=== PATIENT | female | born 1955 | race Caucasian/White ===

== ENCOUNTER → 2018-07-20 12:49 | Outpatient (CLI) | payer OTHER, SELFPAY ==
[2018-07-20 13:11] LABS: Add Manual Diff / Slide Review NO; Basophils Percent Auto 1.2 % (0-2); Eosinophils Percent Auto 3.1 % (2-4); Hematocrit 41.5 % (36-46); Hemoglobin 13.9 g/dL (12.0-16.0); Lymphocytes Percent Auto 48.5 % (25-40); Mean Corpuscular HGB Conc 33.4 % (30-36); Mean Corpuscular Hemoglobin 30.5 PG (26-34); Mean Corpuscular Volume 91.4 fL (80-100); Monocytes Percent Auto 5.9 % (3-14); Neutrophils Absolute Auto 2800 /uL (3000-5900); Neutrophils Percent Auto 41.3 % (50-75); Platelet Count 266 X10^3/uL (150-400); Red Blood Cell Count 4.54 X10^6/uL (4.0-5.2); Red Cell Distribution Width 13.8 % (11.6-14.8); White Blood Cell Count 6.9 X10^3/uL (4.5-11.0)
[2018-07-20 13:52] LABS: BUN Creatinine Ratio 22.9 (6-22); Blood Urea Nitrogen 16 mg/dL (7-17); Calcium 9.3 mg/dL (8.4-10.2); Carbon Dioxide 32 mmol/L (22-32); Chloride 104 mmol/L (98-107); Estimated Glomerular Filt Rate > 60.0 mL/min (>60); Glucose 96 mg/dL (80-110); HEMOLYSIS < 15 (0-50); Magnesium 2.3 mg/dL (1.6-2.3); Potassium 4.3 mmol/L (3.4-5.1); Sodium 145 mmol/L (137-145)
== END ==
PROVIDERS: Visit Provider Family Medicine
DX: R60.0 Localized edema (principal)
CPT/HCPCS: 36415; 80048; 83735; 85025

== ENCOUNTER → 2018-07-21 12:17 | Outpatient (CLI) | payer OTHER, SELFPAY ==
--- NOTE | 2018-07-21 | DI.US.S_ITS ---
PROCEDURE: US PERIPH VENOUS LOW EXTREM LT INDICATIONS: LEFT LOWER EXTREMITY EDEMA AND PAIN TECHNIQUE: Real-time imaging, as well as color and pulse Doppler interrogation, were performed of the lower extremity deep veins from the inguinal ligament to the popliteal fossa. COMPARISON: None. FINDINGS: The deep veins are normally compressible, and free of intraluminal thrombus. Color and pulse Doppler demonstrate normal phasic intraluminal flow. There is normal augmentation response to distal compression maneuver. IMPRESSION: No deep venous thrombosis identified within the right lower extremity. Dictated by: Brad ERWIN Interpreted: Ann Borges MD on 07/21/2018 at 13:42 Approved by: Ann Borges M.D. on 07/21/2018 at 15:37
== END ==
PROVIDERS: Visit Provider Family Medicine
DX: M79.605 Pain in left leg (principal); R60.0 Localized edema
CPT/HCPCS: 93971

== ENCOUNTER → 2018-08-10 13:35 | Outpatient (CLI) | payer OTHER, SELFPAY ==
--- NOTE | 2018-08-10 | DI.MG.S_ITS ---
BILATERAL DIGITAL SCREENING MAMMOGRAM 3D/2D WITH CAD: 08/10/2018 Comparison is made to exams dated: 03/20/2017 mammogram, 01/25/2016 mammogram, and 03/14/2014 mammogram - [facility]. The tissue of both breasts is extremely dense, which lowers the sensitivity of mammography. Current study was also evaluated with a Computer Aided Detection (CAD) system. No significant masses, calcifications, or other findings are seen in either breast. There has been no significant interval change. IMPRESSION: NEGATIVE There is no mammographic evidence of malignancy. A 1 year screening mammogram is recommended. NOTE: For mammograms, a report in lay terms will be sent to the patient. Approximately 15% of breast malignancies will not be visualized mammographically. In the management of a palpable breast mass, a negative mammogram must not discourage biopsy of a clinically suspicious lesion. Electronically Signed By: Stoney quintana/ubaldo:08/10/2018 15:28:02 letter sent: Normal Exam ACR BI-RADS Category 1: Negative 3341F
--- NOTE | 2018-08-10 | DI.US.S_ITS ---
PROCEDURE: US RENAL COMPLETE INDICATIONS: HEMATURIA TECHNIQUE: Real-time scanning was performed of the kidneys and bladder, with image documentation. COMPARISON: None. FINDINGS: Kidneys: Kidneys are normal in size. Right kidney measures 12.6 cm long; left kidney measures 11.2 cm long. Right renal cortical thickness is 1.2 cm; left renal cortical thickness is 1.4 cm. Renal cortical echotexture is normal. No hydronephrosis or nephrolithiasis. No suspicious solid mass lesions. Bladder: Pre-void bladder volume is 385 mL. Post-void residual is 0 mL. Pre-void images demonstrate no intraluminal masses or stones. On pre-void images, neither ureteral jets are noted with color Doppler interrogation. (Of note, ureteral jets may not be detectable in up to 25% of cases due to insufficient differences in specific gravity between ureteral and bladder urine). Miscellaneous: No free pelvic fluid. IMPRESSION: No hydronephrosis or nephrolithiasis found, normal bladder function. Followup CT scanning with contrast may be warranted depending on the clinical status to more accurately assess for presence of urothelial or renal cortical mass. Dictated by: Papo Brizuela M.D. on 08/10/2018 at 15:04 Approved by: Papo Brizuela M.D. on 08/10/2018 at 15:05
== END ==
PROVIDERS: PCP Family Medicine; Visit Provider Family Medicine
DX: Z12.31 Encounter for screening mammogram for malignant neoplasm of breast (principal); R31.9 Hematuria, unspecified; M81.0 Age-related osteoporosis without current pathological fracture; Z78.0 Asymptomatic menopausal state; Z87.891 Personal history of nicotine dependence
CPT/HCPCS: 76770; 77063; 77067; 77080

== ENCOUNTER → 2019-08-17 15:12 | Outpatient (CLI) | payer MEDICARE, OTHER, SELFPAY ==
--- NOTE | 2019-08-17 | DI.MG.S_ITS ---
BILATERAL DIGITAL SCREENING MAMMOGRAM 3D/2D WITH CAD: 08/17/2019 CLINICAL: Routine screening. Comparison is made to exams dated: 08/10/2018 mammogram - [facility], 03/20/2017 mammogram, and 01/25/2016 mammogram - [facility]. The tissue of both breasts is extremely dense, which lowers the sensitivity of mammography. Current study was also evaluated with a Computer Aided Detection (CAD) system. No significant masses, calcifications, or other findings are seen in either breast. There has been no significant interval change. IMPRESSION: NEGATIVE There is no mammographic evidence of malignancy. A 1 year screening mammogram is recommended. This exam was interpreted at Station ID: [id number]. NOTE: For mammograms, a report in lay terms will be sent to the patient. Approximately 15% of breast malignancies will not be visualized mammographically. In the management of a palpable breast mass, a negative mammogram must not discourage biopsy of a clinically suspicious lesion. Electronically Signed By: Stoney quintana/ubaldo:08/17/2019 16:23:55 letter sent: Normal Exam ACR BI-RADS Category 1: Negative 3341F
== END ==
PROVIDERS: PCP Family Medicine; Visit Provider Family Medicine
DX: Z12.31 Encounter for screening mammogram for malignant neoplasm of breast (principal)
CPT/HCPCS: 77063; 77067

== ENCOUNTER → 2019-08-17 15:55 | Outpatient (CLI) | payer MEDICARE, OTHER, SELFPAY | PROVIDERS: PCP Family Medicine; Visit Provider Family Medicine | DX: M85.88 Other specified disorders of bone density and structure, other site (principal); Z78.0 Asymptomatic menopausal state; Z87.891 Personal history of nicotine dependence | CPT/HCPCS: 77080 ==

== ENCOUNTER → 2020-09-04 15:49 | Outpatient (CLI) | payer OTHER, SELFPAY ==
--- NOTE | 2020-09-04 15:53 | DI.RAD.S_ITS ---
PROCEDURE: XR KNEE LT 3V INDICATIONS: LEFT KNEE PAIN S/P INJURY TECHNIQUE: 3 views of the knee were acquired. COMPARISON: None. FINDINGS: Bones: No fractures or dislocations. No suspicious bony lesions. 3 views show moderate medial compartment joint space narrowing and similar moderate degenerative osteoarthritic change at the lateral facet of the patellofemoral joint. Soft tissues: No joint effusion. No suspicious soft tissue calcifications. IMPRESSION: No trauma found. Moderate osteoarthritis as discussed at the medial compartment and lateral facet. Dictated by: Papo Brizuela M.D. on 09/04/2020 at 17:05 Approved by: Papo Brizuela M.D. on 09/04/2020 at 17:06
== END ==
PROVIDERS: PCP Family Medicine; Referring Provider Family Medicine; Visit Provider Family Medicine
DX: M25.562 Pain in left knee (principal); M17.12 Unilateral primary osteoarthritis, left knee
CPT/HCPCS: 73562

== ENCOUNTER → 2020-10-05 13:40 | Outpatient (CLI) | payer MEDICARE, SELFPAY ==
--- NOTE | 2020-10-05 | DI.MG.S_ITS ---
BILATERAL DIGITAL SCREENING MAMMOGRAM 3D/2D WITH CAD: 10/05/2020 CLINICAL: Routine screening. Comparison is made to exams dated: 08/17/2019 mammogram, 08/10/2018 mammogram - [facility], and 03/20/2017 mammogram - [facility]. The tissue of both breasts is extremely dense, which lowers the sensitivity of mammography. Current study was also evaluated with a Computer Aided Detection (CAD) system. No significant masses, calcifications, or other findings are seen in either breast. There has been no significant interval change. IMPRESSION: NEGATIVE There is no mammographic evidence of malignancy. A 1 year screening mammogram is recommended. This exam was interpreted at Station ID: [id number]. NOTE: For mammograms, a report in lay terms will be sent to the patient. Approximately 15% of breast malignancies will not be visualized mammographically. In the management of a palpable breast mass, a negative mammogram must not discourage biopsy of a clinically suspicious lesion. Electronically Signed By: Alli Strong acr/ubaldo:10/05/2020 14:21:14 letter sent: Normal Exam ACR BI-RADS Category 1: Negative 3341F
== END ==
PROVIDERS: PCP Family Medicine; Referring Provider Family Medicine; Visit Provider Family Medicine
DX: Z12.31 Encounter for screening mammogram for malignant neoplasm of breast (principal)
CPT/HCPCS: 77063; 77067

== ENCOUNTER → 2021-03-05 15:34 | Outpatient (CLI) | payer MEDICARE, OTHER, SELFPAY ==
--- NOTE | 2021-03-05 15:35 | DI.ECHO.S_ITS ---
[facility] +---------+ Hospital +---------+ : : [address] : : : : [id number] : : : : Phone: [phone]+ Echocardiogram Report + + :Name: ALFONZO TREJO Study Date: 03/05/2021 Height: 64 in : :[facility] ReadingLocation: Weight: 169 lb : : Gender: Female BSA: 1.8 m2 : :: 1955 Age: 65 yrs BP: 166/103 mmHg: :Reason For Study: SHORTNESS OF BREATH : :Ordering Physician: DONNA, : :PEDRO LUIS Performed By: Melissa Carver : :Referring: PEDRO LUIS THOMPSON : + + Interpretation Summary 1) Normal left ventricular thickness, size, wall motion, and systolic function (EF 60-65%). 2) Normal right ventricular size and function. 3) No significant valvular abnormalities. 4) Pulmonary artery pressures cannot be estimated because of the lack of a measurable TR jet velocity. 5) Hypertension present during the study (BP 166/103mmHg). 6) No prior Echo available for comparison. Procedure: A two-dimensional transthoracic echocardiogram with color flow and Doppler was performed. The study quality was technically adequate. There is no prior echocardiogram noted for this patient. The patient was in sinus bradycardia with heart rates between 48-62 bpm during the exam. Left Ventricle: The left ventricle is normal in size and wall thickness. The ejection fraction is estimated to be 60-65%. Left ventricular systolic function appears normal without focal wall motion abnormalities. Diastolic parameters suggest a relaxation abnormality of the left ventricle, consistent with probable normal filling pressures. Right Ventricle: The right ventricle is normal in size and function. Atria: The left atrium is moderately dilated. Right atrial size is normal. There is no Doppler evidence for an interatrial shunt. Mitral Valve: The mitral valve is normal in structure and function. There is mild mitral regurgitation. Aortic Valve: The aortic valve is trileaflet. The aortic valve opens well. There is no aortic valve stenosis. No aortic regurgitation is present. Tricuspid Valve: The tricuspid valve is normal in structure and function. There is trace tricuspid regurgitation. Pulmonary artery pressures cannot be estimated because of the lack of a measurable TR jet velocity. Pulmonic Valve: The pulmonic valve leaflets are thin and pliable; valve motion is normal. There is no pulmonic valvular regurgitation. Great Vessels: The aortic root is normal size. The ascending aorta is at the upper limits of normal in size. The IVC is of normal diameter and collapses greater than 50% with a sniff. This suggests a low right atrial pressure of 3 mm Hg. Pericardium/ Pleura There is no pericardial effusion. There is no pleural effusion. MMode/2D Measurements & Calculations LVIDd: 4.8 cm LVOT diam: 2.0 cm LVIDs: 3.4 cm Ao root diam: 3.1 cm FS: 29.0 % asc Aorta Diam: 3.4 cm EPSS: 0.77 cm Ao Arch Diam (Prox Trans): 3.1 cm IVSd: 0.78 cm LVPWd: 0.83 cm LV ruiz. diameter/BSA (cm/m^2): 2.6 LV sys. diameter/BSA (cm/m^2): 1.9 LA A2 area: 24.4 cm2 RA long axis: 5.0 cm LA A4 area: 19.8 cm2 RA area: 18.0 cm2 LA length (vol): 5.3 cm RA vol: 55.0 ml LA vol: 77.7 ml RA : 30.2 ml/m2 LA vol index: 42.7 ml/m2 IVC diam: 1.2 cm RVD1 (basal): 3.1 cm TAPSE: 2.1 cm Doppler Measurements & Calculations Ao V2 max: 155.3 cm/sec LVOT Max Duane: 91.9 cm/sec Ao V2 mean: 103.6 cm/sec LV V1 max P.4 mmHg Ao max P.7 mmHg LV V1 VTI: 22.4 cm Ao mean P.9 mmHg RANJEET(I,D): 2.1 cm2 Ao V2 VTI: 35.2 cm RANJEET(V,D): 1.9 cm2 sev ratio: 0.64 RANJEET indexed to BSA (cm^2/m^2): 1.1 MV E max duane: 38.9 cm/sec PA pr(Accel): 1.9 mmHg MV A max duane: 68.9 cm/sec MV E/A: 0.56 Med Peak E' Duane: 5.6 cm/sec E/E' med: 7.0 Lat Peak E' Duane: 8.7 cm/sec E/E' lat: 4.5 E/e' average: 5.7 MV dec time: 0.31 sec SVLVOT): 73.5 ml Reading Physician:05:44 PM
== END ==
PROVIDERS: PCP Family Medicine; Referring Provider Family Medicine; Visit Provider Family Medicine
DX: I34.0 Nonrheumatic mitral (valve) insufficiency (principal); R06.02 Shortness of breath
CPT/HCPCS: 93306

== ENCOUNTER → 2021-10-24 15:40 | Outpatient (CLI) | payer MEDICARE, OTHER, SELFPAY ==
--- NOTE | 2021-10-24 15:44 | DI.MG.S_ITS ---
BILATERAL DIGITAL SCREENING MAMMOGRAM 3D/2D WITH CAD: 10/24/2021 CLINICAL: Routine screening. Comparison is made to exams dated: 10/05/2020 mammogram, 08/17/2019 mammogram, and 08/10/2018 mammogram - [facility]. The tissue of both breasts is extremely dense, which lowers the sensitivity of mammography. Current study was also evaluated with a Computer Aided Detection (CAD) system. There is an oval equal density asymmetry with an obscured and circumscribed margin in the left breast posterior depth inferior region seen on the mediolateral oblique view only. No other significant masses, calcifications, or other findings are seen in either breast. IMPRESSION: INCOMPLETE: NEEDS ADDITIONAL IMAGING EVALUATION The oval equal density asymmetry in the left breast is indeterminate. Mediolateral and spot compression views as well as additional views with possible ultrasound are recommended. This exam was interpreted at Station ID: [id number]. NOTE: For mammograms, a report in lay terms will be sent to the patient. Approximately 15% of breast malignancies will not be visualized mammographically. In the management of a palpable breast mass, a negative mammogram must not discourage biopsy of a clinically suspicious lesion. Electronically Signed By: Stoney quintana/ubaldo:10/25/2021 11:18:24 letter sent: Additional Imaging Needed ACR BI-RADS Category 0: Incomplete 3340F
== END ==
PROVIDERS: PCP Family Medicine; Referring Provider Family Medicine; Visit Provider Family Medicine
DX: Z12.31 Encounter for screening mammogram for malignant neoplasm of breast (principal)
CPT/HCPCS: 77063; 77067

== ENCOUNTER → 2021-11-28 12:34 | Outpatient (CLI) | payer MEDICARE, OTHER, SELFPAY ==
--- NOTE | 2021-11-28 | DI.US.S_ITS ---
LIMITED ULTRASOUND OF LEFT BREAST: 11/28/2021 CLINICAL: Patient returns today to evaluate an asymmetry in the left breast. Comparison is made to exams dated: 11/28/2021 mammogram, 10/24/2021 mammogram, 10/05/2020 mammogram, 08/17/2019 mammogram, 08/10/2018 mammogram - [facility], and 03/20/2017 mammogram - [facility]. Real-time ultrasound of the left breast lower aspect was performed. Li scale images of the real-time examination were reviewed. No significant abnormalities were seen sonographically in the left breast. Specifically, no finding to correspond to the patient's resolved screening mammographic abnormality. IMPRESSION: PROBABLY BENIGN There is no sonographic correlate to the patient's screening mammography abnormality. A follow-up left mammogram in 6 months is recommended to demonstrate stability. Findings and recommendations were conveyed to the patient at time of exam. This exam was interpreted at Station ID: [id number]. Electronically Signed By: Liza marie/:11/28/2021 16:01:38 letter sent: Followup Recommended Ultrasound BI-RADS: 3 Probably benign
--- NOTE | 2021-11-28 | DI.MG.S_ITS ---
UNILATERAL LEFT DIGITAL DIAGNOSTIC MAMMOGRAM 3D/2D WITH ADDITIONAL VIEWS: 11/28/2021 CLINICAL: Additional evaluation requested from prior study. Comparison is made to exams dated: 10/24/2021 mammogram, 10/05/2020 mammogram, and 08/17/2019 mammogram - [facility]. The tissue of left breast is extremely dense, which lowers the sensitivity of mammography. The oval asymmetry with a circumscribed margin previously seen in the left breast posterior depth inferior region on the mediolateral oblique view only is no longer seen and is not seen in additional views. No other significant masses or calcifications are seen in the breast. IMPRESSION: INCOMPLETE: NEEDS ADDITIONAL IMAGING EVALUATION Resolution of screening mammography abnormality with additional views. Ultrasound evaluation to confirm resolution is recommended and was performed immediately following this exam. This exam was interpreted at Station ID: [id number]. NOTE: For mammograms, a report in lay terms will be sent to the patient. Approximately 15% of breast malignancies will not be visualized mammographically. In the management of a palpable breast mass, a negative mammogram must not discourage biopsy of a clinically suspicious lesion. Electronically Signed By: Liza marie/:11/28/2021 14:33:57 ACR BI-RADS Category 0: Incomplete 3340F
--- NOTE | 2021-11-28 | DI.RAD.S_ITS ---
PROCEDURE: XR CHEST 2V INDICATIONS: HYPERTENSION TECHNIQUE: 2 views of the chest were acquired. COMPARISON: None. FINDINGS: Surgical changes and devices: None. Lungs and pleura: Lungs are clear. No pleural effusions or pneumothorax. Mediastinum: Mediastinal contours are normal. Heart size is normal. Bones and chest wall: No suspicious bony abnormalities. Soft tissues appear unremarkable. IMPRESSION: No acute cardiopulmonary process demonstrated radiographically. Dictated by: Uriel Lau M.D. on 11/28/2021 at 14:04 Approved by: Uriel Lau M.D. on 11/28/2021 at 14:05
== END ==
PROVIDERS: PCP Family Medicine; Referring Provider Family Medicine; Visit Provider Family Medicine
DX: R92.8 Other abnormal and inconclusive findings on diagnostic imaging of breast (principal); N64.89 Other specified disorders of breast; I10 Essential (primary) hypertension; M85.88 Other specified disorders of bone density and structure, other site; Z78.0 Asymptomatic menopausal state; Z87.891 Personal history of nicotine dependence
CPT/HCPCS: 71046; 76642; 77065; 77080; G0279

== ENCOUNTER → 2022-06-13 14:07 | Outpatient (CLI) | payer MEDICARE, OTHER, SELFPAY ==
--- NOTE | 2022-06-13 | DI.MG.S_ITS ---
UNILATERAL LEFT DIGITAL DIAGNOSTIC MAMMOGRAM 3D/2D: 06/13/2022 CLINICAL: Short term follow up for the left breast. Comparison is made to exams dated: 11/28/2021 ultrasound, 11/28/2021 mammogram, 10/24/2021 mammogram, and 10/05/2020 mammogram - [facility]. The left breast is extremely dense, which lowers the sensitivity of mammography (category d />75% glandular tissue). The asymmetry in the left breast seen on the screening mammogram dated 10/24/21 is no longer seen. THis was not seen on additional views from 11/28/21 or on ultrasound. No other significant masses or calcifications are seen in the breast. IMPRESSION: NEGATIVE The left breast asymmetry seen only on the screening MLO from 10/24/21 likely respresents superimposed fibroglandular tissue and is benign. Return to annual mammogram screening schedule is recommended. Based on the Tyrer Cuzick model (a risk assessment model) the patient's lifetime risk is 13.6% and her 10 year risk is 7.6%. According to the ACR, ACS, and NCCN guidelines, an annual breast MRI exam along with mammogram is recommended if the patient's lifetime risk is 20% or greater. This exam was interpreted at Station ID: [id number]. NOTE: For mammograms, a report in lay terms will be sent to the patient. Approximately 15% of breast malignancies will not be visualized mammographically. In the management of a palpable breast mass, a negative mammogram must not discourage biopsy of a clinically suspicious lesion. Electronically Signed By: Katey ross/:06/13/2022 14:32:28 letter sent: Normal Exam ACR BI-RADS Category 1: Negative 3341F
== END ==
PROVIDERS: PCP Family Medicine; Referring Provider Family Medicine; Visit Provider Family Medicine
DX: R92.8 Other abnormal and inconclusive findings on diagnostic imaging of breast (principal)
CPT/HCPCS: 77065; G0279

== ENCOUNTER → 2022-08-01 15:43 | Outpatient (CLI) | payer MEDICARE, OTHER, SELFPAY ==
[2022-08-01 17:32] LABS: COVID19 -Nasal RAPID Negative (Negative)
== END ==
PROVIDERS: PCP Family Medicine; Visit Provider Surgery
DX: Z20.822 Contact with and (suspected) exposure to COVID-19 (principal); Z01.812 Encounter for preprocedural laboratory examination
CPT/HCPCS: 87635; C9803

== ENCOUNTER 2022-08-02 10:42 | Day surgery (SDC) | payer MEDICARE, OTHER, SELFPAY ==
[2022-08-02 11:29] VITALS: BP 157/85; PULSE 76; RESP 16; TEMP 36.6; O2SAT 97; BMI 28.3
--- NOTE | 2022-08-02 11:40 | PM.HP.1 ---
History of Present Illness History of Present Illness Chief complaint: [facility] [place] N[place]ative: Missed did well presents today for a screening colonoscopy. She has a history of diverticulosis in the past and she currently is having diarrhea almost every day. She has had at least 3 colonoscopies before her last was about 5 years ago she did not have any polyps then but in the interim her sister has been diagnosed with colonic adenocarcinoma. And for this reason she was recommended to have a colonoscopy after 5 years. Otherwise fairly healthy she has hypertension rosacea for which she takes invermectin and has never had an abdominal surgery before. she is allergic to amoxicillin. Patient History Medical History (Updated 08/02/22 @ 11:42 by Renu Wagoner MD) Cataract (~05/08/22) HTN (hypertension) Rosacea Surgical History (Updated 08/02/22 @ 11:23 by Silvana Hanson RN) History of skin surgery (~06/13/22) Family & Social History Tobacco & Substance use: Smoking Status Former smoker Meds Home Medications and Allergies Home Medications Medication Instructions Recorded Confirmed Type amlodipine 2.5 mg tablet 2.5 mg PO DAILY 08/02/22 08/02/22 History hydrochlorothiazide 25 mg tablet 25 mg PO DAILY 08/02/22 08/02/22 History ivermectin 1 % topical cream See Rx Instructions .Route .COMPLEX 08/02/22 08/02/22 History losartan 100 mg tablet 100 mg PO DAILY 08/02/22 08/02/22 History potassium chloride 10 mEq 10 meq PO DAILY 08/02/22 08/02/22 History tablet,extended release Allergies Allergy/AdvReac Type Severity Reaction Status Date / Time amoxicillin [AMOXICILLIN] Allergy Unknown Verified 08/02/22 11:12 Exam Const General: cooperative, healthy appearing and comfortable [facility] Head: normal to inspection Resp Effort & Inspection: normal respiratory effort and able to speak in complete sentences Cardio Pulses: radial pulses present GI Inspection: normal to inspection Palpation: soft and No tender Extrem General: normal to inspection Assessment & Plan Assessment and plan (1) Diarrhea: Status: Acute (2) Screening for colon cancer: Status: Acute Plan I discussed the risks benefits and alternatives of screening colonoscopy she understood her questions were answered. And she wishes to proceed. Time Spent With Patient Critical Care time: I spent a total of [] minutes of critical care time on this patient's care today; this time is exclusive of procedural time.
[2022-08-02] MEDS: LACTATED RINGERS 1,000 ML 42 ML IV (11:45)
[2022-08-02] MEDS: MIDAZOLAM 5 MG/5 ML VIAL 6 MG IV (13:38)
[2022-08-02] MEDS: fentaNYL 100 MCG/2 ML INJ 150 MCG IV (13:42)
--- NOTE | 2022-08-02 13:45 | PM.OP.COLON ---
Procedure & Clinicians Study performed: Colonoscopy Same procedure as scheduled: Yes Indications: Screening Surgeon: Renu Wagoner Procedure Notes Procedure in detail: Patient was taken to the endoscopy suite and placed in left lateral decubitus position time-out was performed conscious sedation was administered with 6 mg of Versed and 150 mcg of fentanyl. withdrawal time 12 minutes. The cecum was reached and photographed. There were some suspicious large chunks of stool which were irrigated. The most notable finding is the large diverticula throughout the left of the colon. Photographs were taken of this. There were no polyps seen throughout the colon. Being enlarged internal hemorrhoids were seen upon withdrawal. The mucosa of the colon and rectum was otherwise normal Specimen(s): none sent Post-procedure Recommendations: Colonoscopy in 10 years
[2022-08-02 13:55] VITALS: BP 119/59; PULSE 69; RESP 16; O2SAT 99
[2022-08-02 14:10] VITALS: BP 118/66; PULSE 70; RESP 16; TEMP 36.2; O2SAT 99
== END 2022-08-02 14:15 | disposition home or self-care (01) ==
PROVIDERS: PCP Family Medicine; Referring Provider Surgery; Visit Provider Surgery
PROC: 0DJD8ZZ Inspection of Lower Intestinal Tract, Via Natural or Artificial Opening Endoscopic (ICD-10-PCS; CPT 45378; principal; 2022-08-02 12:15)
DX: Z12.11 Encounter for screening for malignant neoplasm of colon (principal); Z80.0 Family history of malignant neoplasm of digestive organs; I10 Essential (primary) hypertension; K57.30 Diverticulosis of large intestine without perforation or abscess without bleeding; K64.8 Other hemorrhoids
CPT/HCPCS: G0105; J2250; J3010

== ENCOUNTER → 2022-08-07 15:41 | Outpatient (CLI) | payer MEDICARE, OTHER, SELFPAY ==
[2022-08-09 09:44] LABS: Parathyroid Hormone Int 36 pg/mL (15-65)
== END ==
PROVIDERS: PCP Family Medicine; Referring Provider Family Medicine; Visit Provider Family Medicine
DX: E83.52 Hypercalcemia (principal)
CPT/HCPCS: 36415; 83970

== ENCOUNTER → 2022-09-10 07:32 | Outpatient (CLI) | payer MEDICARE, OTHER, SELFPAY ==
--- NOTE | 2022-09-10 | DI.US.S_ITS ---
PROCEDURE: US ABDOMEN COMPLETE INDICATIONS: ABDOMINAL PAIN TECHNIQUE: Real-time scanning was performed of the abdominal and retroperitoneal organs, with image documentation. COMPARISON: [facility], US, US RENAL COMPLETE, 08/10/2018, 14:24. FINDINGS: Liver: The liver demonstrates mildly enlarged size. The liver demonstrates generalized mildly increased echogenicity. This decreases ultrasound sensitivity for detection of hepatic masses. The main portal vein demonstrates normal size and demonstrates normal appearing, hepatopetal flow. Within the right lobe of the liver, there is a septated cyst seen that measures 5.2 x 5.4 x 5.3 cm. Within the right lobe of the liver air medially, anterior to the vivian hepatis, there is irregular hyperechoic homogeneous nonvascular area that measures up to 2.1 cm. The main portal vein demonstrates normal size and demonstrates normal appearing, hepatopetal flow. Gallbladder: The gallbladder is enlarged, measuring 13.9 x 6.4 x 5.6 cm. Mobile stones are seen, with several measuring approximately 1 cm. Sludge is also seen. The gallbladder wall is not thickened, measuring 3 mm or less. No specific pericholecystic fluid is seen. The sonographic Cruz sign is negative. Biliary ducts: Intrahepatic bile ducts are non-dilated. Extrahepatic bile duct caliber measures 11 mm. Normal is 6-7 mm or less in diameter, or 10 mm or less post-cholecystectomy. Pancreas: Inter within the pancreas or immediately adjacent to the anterior tail of the pancreas there is a nonvascular, hypoechoic, irregular lesion that measures up to 2.3 cm. The pancreatic duct measures at the upper limits of normal at 2.3 cm. Spleen: Spleen is normal in size and homogeneous in echotexture. Kidneys: Kidneys are normal in size and echotexture. Right kidney measures 12.1 cm long; left kidney measures 11.2 cm long. No hydronephrosis or nephrolithiasis. No solid masses. Along the inferior right kidney, there is an o'clock cyst that measures up to 9 mm. Aorta: Visualized aorta is normal in caliber at less than 3 cm. Iliacs: Proximal common iliac arteries are normal in caliber at less than 2.5 cm. IVC: Intrahepatic inferior vena cava is patent. Miscellaneous: No free abdominal fluid. IMPRESSION: There is a 2.3 cm lesion seen either within the anterior tail of the pancreas are immediately adjacent to it. - A dedicated CT study (pancreas protocol) is now recommended. Enlarged gallbladder with multiple gallstones. No additional sonographic signs of cholecystitis are seen. The common bile duct is enlarged at 11 mm. - If clinically appropriate, an MRCP could be considered for further evaluation (assuming that there is no contraindication to MRI). Enlarged, fatty liver, with apparent focal fatty infiltration seen adjacent to the vivian hepatis. Additional findings: Septated right liver cyst that measures up to 5.4 cm. Simple appearing right renal inferiorly, 9 mm. Dictated by: Prabhjot Fields M.D. on 09/10/2022 at 8:46 Approved by: Prabhjot Fields M.D. on 09/10/2022 at 8:51
== END ==
PROVIDERS: PCP Family Medicine; Referring Provider Family Medicine; Visit Provider Family Medicine
DX: K80.20 Calculus of gallbladder without cholecystitis without obstruction (principal); K76.0 Fatty (change of) liver, not elsewhere classified; K86.9 Disease of pancreas, unspecified; K76.89 Other specified diseases of liver; N28.1 Cyst of kidney, acquired; K83.8 Other specified diseases of biliary tract; R10.9 Unspecified abdominal pain
CPT/HCPCS: 76700

== ENCOUNTER → 2022-09-14 08:21 | Outpatient (CLI) | payer MEDICARE, OTHER, SELFPAY ==
--- NOTE | 2022-09-14 08:24 | DI.CT.S_ITS ---
PROCEDURE: CT ABDOMEN PANCREATIC PROTOCOL INDICATIONS: PANCREATIC LESION TECHNIQUE: After the administration of intravenous contrast, 3 mm thick pancreatic-phase images acquired from the diaphragm to the iliac crests. 3 mm thick coronal and sagittal reformats were performed. For radiation dose reduction, the following was used: automated exposure control, adjustment of mA and/or kV according to patient size. COMPARISON: [facility], , US ABDOMEN COMPLETE, 09/10/2022, 7:51. FINDINGS: Image quality: Excellent. Lung bases: Lung bases are clear. Heart size is normal. Pancreas: The pancreatic duct is normal in caliber. There is a normal anatomic variant mild lobulation at the pancreatic tail, but no malignant-appearing or inflammatory mass in that area is present or elsewhere. Other solid organs: Liver is normal in size and enhancement except for presence of a previously documented 5.1 cm cyst within the right hepatic lobe, and a perfusion anomaly within the subcapsular left lateral hepatic segment measuring up to 1.2 x 1.8 cm in dimension, with a more subtle similar hyperenhancing subcapsular right posterior hepatic segment perfusion anomaly measuring up to 9 mm in diameter. These are best seen on CT series 2, image 19 and 17, respectively.. Gallbladder is hydropic, measuring up to 5.8 x 6.7 cm in axial dimension and up to 12 cm craniocaudad. The gallstones seen by ultrasound are not well visualized by CT scanning in this patient. Biliary system is non dilated. Spleen is normal in size and enhancement. No adrenal nodules. Kidneys are normal in size and enhancement, without hydronephrosis. Peritoneum and bowel: Unenhanced bowel loops demonstrate normal wall thickness and caliber. No free fluid or air. Nodes and vessels: No retroperitoneal or mesenteric adenopathy by size criteria. Aorta and inferior vena cava are normal in size. Bones: No suspicious bony lesions. No vertebral body compression fractures. Miscellaneous: No ventral hernias. IMPRESSION: 1. The pancreas shows no evidence of mass or inflammation. A normal variant anatomic lobulation of the pancreatic tail is present, likely accounting for the sonographic finding in that same region of the pancreas on the study performed 09/10/22. No follow-up recommended. 2. Two perfusion in al ease are present within the subcapsular left lateral hepatic segment anteriorly and the right posterior hepatic segment posteriorly. These likely represent unilocular enhancing hemangiomas. The imaging characteristics are not definitive for establishing benign hemangioma as the underlying cause, however. Therefore nuclear medicine tagged red blood cell scan with SPECT imaging is recommended to confirm benign etiology. 3. Hydropic gallbladder, with previously recently documented gallstones within the gallbladder lumen not accurately detected by CT scanning. These therefore would represent cholesterol rich gallstones. Etiology of gallbladder hydrops is not established by this study but could represent evidence of a cystic duct calculus in this clinical circumstance. Please correlate clinically. Dictated by: Papo Brizuela M.D. on 09/14/2022 at 20:31 Approved by: Papo Brizuela M.D. on 09/14/2022 at 20:44
[2022-09-14 09:40] LABS: Estimated Glomerular Filt Rate > 60 mL/min (>60)
== END ==
PROVIDERS: Radiology Diagnostic Radiology; PCP Family Medicine; Referring Provider Family Medicine; Visit Provider Family Medicine
DX: K86.9 Disease of pancreas, unspecified (principal); K82.1 Hydrops of gallbladder; Z12.11 Encounter for screening for malignant neoplasm of colon
CPT/HCPCS: 36415; 74160; 82565; Q9967

== ENCOUNTER → 2022-10-23 11:35 | Outpatient (CLI) | payer MEDICARE, OTHER, SELFPAY ==
--- NOTE | 2022-10-23 11:37 | DI.MRI.S_ITS ---
PROCEDURE: MR ABDOMEN WO/W CON INDICATIONS: FOLLOW UP FOR SMALL POSSIBLE HEMANGIOMAS ON CT TECHNIQUE: Coronal HASTE, axial 2D FLASH in- and [id number]; axial breath-hold T2 FSE. Dynamic axial VIBE during the administration of contrast; post-contrast coronal VIBE or 2D FLASH with fat saturation from the hepatic dome to the iliac crests. Optional diffusion weighted imaging and ADC may be performed. COMPARISON: [facility], CT, CT ABDOMEN PANCREATIC PROTOCOL, 09/14/2022, 8:56. FINDINGS: Image quality: Excellent. Lung bases: No basal pleural effusions. Liver: There is diffuse signal loss on [id number] images compatible with hepatic steatosis. Previously described perfusion anomaly at the anterior aspect of hepatic segment 2 demonstrates T2 hyperintensity and postcontrast enhancement mirroring blood pool typical of a hemangioma. The perfusion anomaly at the posterior aspect of segment 7 also demonstrates T2 hyperintensity and is homogeneously enhancing mirroring blood pool, likely a flash fill hemangioma. Previously demonstrated lobulated cyst in the right lobe of the liver measures 5.5 cm. Several thin internal septations are present. No definite internal enhancement. Solid organs: Gallbladder is distended and contains multiple small stones. Mild extrahepatic biliary ductal dilation present with the duct measuring 9 mm near the vivian hepatis, with a tapered appearance at the ampulla. No choledocholithiasis identified on this non MRCP exam. No intrahepatic ductal dilation demonstrated. No dilation of the main pancreatic duct. Spleen is normal in size and enhancement. No adrenal nodules. Both kidneys demonstrate normal size and enhancement, without hydronephrosis. Bowel and peritoneum: Unenhanced bowel loops are normal in caliber. No free fluid. IMPRESSION: 1. Previously described perfusion anomalies in hepatic segments 2 and 7 demonstrate signal and enhancement characteristics typical of hemangiomata. 2. Redemonstrated cyst in the right lobe of the liver. Several thin internal septations are present without definite internal enhancement. This is a nonspecific finding. It could represent a biliary cystadenoma, cystadenocarcinoma is not excludable. Gastroenterology consultation may be helpful to direct further management. 3. Cholelithiasis. 4. Hepatic steatosis. Dictated by: Maynor Frederick M.D. on 10/23/2022 at 16:43 Approved by: Maynor Frederick M.D. on 10/23/2022 at 17:08
== END ==
PROVIDERS: PCP Family Medicine; Referring Provider Surgery; Visit Provider Surgery
DX: R93.2 Abnormal findings on diagnostic imaging of liver and biliary tract (principal); K76.89 Other specified diseases of liver; K76.0 Fatty (change of) liver, not elsewhere classified; K80.20 Calculus of gallbladder without cholecystitis without obstruction; K83.8 Other specified diseases of biliary tract
CPT/HCPCS: 74183

== ENCOUNTER → 2022-11-04 13:57 | Outpatient (CLI) | payer MEDICARE, OTHER, SELFPAY ==
[2022-11-04 15:53] LABS: COVID19 -Nasal RAPID Negative (Negative)
== END ==
PROVIDERS: PCP Family Medicine; Visit Provider Surgery
DX: Z20.822 Contact with and (suspected) exposure to COVID-19 (principal); Z01.812 Encounter for preprocedural laboratory examination
CPT/HCPCS: 87635; C9803

== ENCOUNTER 2022-11-05 07:35 | Day surgery (SDC) | payer MEDICARE, OTHER, SELFPAY ==
[2022-10-31 07:50] VITALS: BMI 27.9
--- NOTE | 2022-11-05 | PATH_ITS ---
[facility] Accession Number: [id number] No. of containers..01 Tissue . 01 Material submitted: . gallbladder - GALLBLADDER . 01 Diagnosis: Gallbladder, Cholecystectomy: Cholelithiasis with mild chronic and active cholecystitis. No evidence of neoplasm. MARISSA 11/07/2022 1059 Local . 01 Electronically signed: . Ryan Jung MD, PhD, Pathologist NPI- [id number] . 01 Gross description: . The specimen is received in formalin labeled with the patient's name, , and gallbladder, and consists of an intact gallbladder measuring 10.4 x 5.7 x 1.5 cm. The serosa is collazo to congested and smooth while the hepatic surface is rough and unremarkable. The cystic duct is received closed with a clamp, is inked blue, and no pericystic lymph node is identified. The lumen contains a small amount of pale collazo viscous bile and numerous yellow to orange faceted calculi measuring up to 1.1 cm in greatest dimension grossly obstructing the cystic duct. The mucosa is collazo, grossly denuded, and wrinkled with no areas of discoloration, polyps, or lesions identified. The gonzalez average 0.1 cm thick. International Specialist sections to include the cystic duct margin and full thickness sections are submitted in cassette A1. ([id number]) /MARISSA 11/06/2022 1116 Local . 01 Pathologist provided ICD-10: K80.60, K81.2 . 01 CPT . 088248 Specimen Comment: A courtesy copy of this report has been sent to [facility] Pathology Performed at: 01 [facility] [address] [place] [address] [address], [place], [place] [id number] MD Stoney Lezama MD Phone: [phone]
[2022-11-05] MEDS: LACTATED RINGERS 1,000 ML 42 ML IV (07:46)
[2022-11-05 07:47] VITALS: BP 140/83; PULSE 65; RESP 16; TEMP 37.1; O2SAT 98; BMI 27.9
--- NOTE | 2022-11-05 08:14 | PM.PREOP ---
Pre-operative Note Interval Note History & Physical reviewed/Exam performed by Physician: Yes Changes to H&P: No
[2022-11-05] MEDS: CEFAZOLIN 2 GM/100 ML PREMIX 100 ML IV (08:25)
--- NOTE | 2022-11-05 08:42 | SUR.OPER ---
Supine on padded OR bed, head on pillow, safety belt at thigh, left arm padded and tucked at side. Right arm secured on padded arm board <90 degrees abduction. Legs uncrossed. Padded footboard in place.
[2022-11-05] MEDS: BUPIVACAINE 0.5% W/ EPI (PF) 30 ML VIAL INJ (08:59)
[2022-11-05 10:03] VITALS: BP 102/51; PULSE 69; RESP 15; TEMP 36.3; O2SAT 91
[2022-11-05 10:08] VITALS: BP 102/57; PULSE 71; RESP 14; TEMP 36.3; O2SAT 91
[2022-11-05 10:13] VITALS: BP 121/68; PULSE 79; RESP 13; TEMP 36.5; O2SAT 94
[2022-11-05] MEDS: HYDROCODONE/ACET 5/325 TABLET 1 TAB PO (10:25)
--- NOTE | 2022-11-05 10:25 | PM.OP.1 ---
Procedure & Clinicians Procedure: Laparoscopic cholecystectomy Same procedure as scheduled: Yes Indications: Patient has presented to the emergency room with abdominal pain and workup revealed an abnormal hydropic gallbladder. She does report symptoms of nausea and understands risks benefits and alternatives of proceeding with laparoscopic cholecystectomy and would like to proceed. Incidentally she had a liver cyst which was reviewed by hepatobiliary surgeon Dr. Zacarias remotely, who recommended radiographic monitoring. Surgeon: Renu Wagoner Click Yes if Unassisted: Yes Anesthesia Type: General Operative Notes Findings: The gallbladder was certainly abnormal, it was edematous and hydropic. It was tense. Aspirated and the fluid was clear. There were stones within it. Specimen(s): other Prosthetic devices, grafts, tissues, transplants, or devices: Gallbladder Procedure in detail: Patient was taken to the operating room and placed supine on the operating room table. General endotracheal anesthesia was induced, bilateral SCDs were in place, preoperative antibiotics were administered. A time-out was performed. The abdomen was then prepped and draped in the usual sterile fashion. After infusing local anesthetic above the umbilicus, an 11 blade scalpel was used to incise the skin and electrocautery used to carry the incision down to the anterior abdominal wall fascia which was doubly grasped with 2 Deng and elevated. The abdominal cavity was then entered sharply under direct visualization using and #11 blade scalpel. Correct location verified with a finger sweep. 2 stay sutures of 0 Vicryl were placed through the fascial layers and the Hari trocar was placed into the abdomen. The abdomen was then insufflated and the patient tolerated this well. The laparoscope was introduced and the gallbladder was clearly seen. The accessory trocars were placed in the subcostal positions after infusing local anesthesia under direct visualization. The patient was positioned with the feet down and tilted with the right side up and the gallbladder was grasped and retracted cephalad. Grasping the gallbladder was quite difficult due to how much fluid was tense and contained within it. Therefore I aspirated the gallbladder. Clear liquid came from the gallbladder. After this maneuver I could grasp the gallbladder much better and retracted cephalad in the normal way. I then proceeded with the dissection. There was some adhesion of omentum to the gallbladder wall and liver which was taken down carefully with electrocautery. Next I incised the peritoneal layer overlying the gallbladder using electrocautery and used a [place] dissector to dissect free the cystic artery which was seen quite clearly on the anterior surface of the gallbladder. I doubly clipped and ligated the artery above the lymph node quite high on the gallbladder wall. I then continued to dissect through creating a critical view of the cystic duct. Of note the common bile duct was clearly visible upon entry and appeared somewhat enlarged. The cystic duct itself was small and short. A critical view was obtained and a photograph was taken. The cystic duct was doubly clipped and ligated the gallbladder was then removed from the gallbladder wall fascia using electrocautery in the standard way. The operative site was inspected for hemostasis and cautery used on the liver bed to achieve this. Of note there was some clear fluid in the abdomen upon entry which was aspirated with the suction route delivery clerk. The suction route delivery clerk was used to dry the liver bed as well. There was no spillage of bile and minimal blood loss. The patient tolerated the procedure well there were no complications and went in good condition to the postop care unit. Complications: none
[2022-11-05 10:28] VITALS: BP 141/85; PULSE 82; RESP 19; TEMP 36.4; O2SAT 96
[2022-11-05] MEDS: ONDANSETRON 4 MG/2 ML INJ IV (10:34)
== END 2022-11-05 10:56 | disposition home or self-care (01) ==
PROVIDERS: PCP Family Medicine; Referring Provider Surgery; Visit Provider Surgery
PROC: 0FT44ZZ Resection of Gallbladder, Percutaneous Endoscopic Approach (ICD-10-PCS; CPT 47562; principal; 2022-11-05 07:45)
DX: K80.10 Calculus of gallbladder with chronic cholecystitis without obstruction (principal); K82.1 Hydrops of gallbladder; I10 Essential (primary) hypertension
CPT/HCPCS: 47562; J0690; J1100; J1170; J2250; J2405; J2704; J3010

== ENCOUNTER → 2022-12-02 15:54 | Outpatient (CLI) | payer MEDICARE, OTHER, SELFPAY ==
--- NOTE | 2022-12-02 15:55 | DI.MG.S_ITS ---
BILATERAL DIGITAL SCREENING MAMMOGRAM 3D/2D WITH CAD: 12/02/2022 CLINICAL: Routine screening. Comparison is made to exams dated: 10/24/2021 mammogram, 10/05/2020 mammogram, and 08/17/2019 mammogram - [facility]. Both breasts are extremely dense, which lowers the sensitivity of mammography (category d />75% glandular tissue). Current study was also evaluated with a Computer Aided Detection (CAD) system. There is a mole marker on the left breast. No significant masses, calcifications, or other findings are seen in either breast. There has been no significant interval change. IMPRESSION: NEGATIVE There is no mammographic evidence of malignancy. A 1 year screening mammogram is recommended. Based on the Tyrer Cuzick model (a risk assessment model) the patient's lifetime risk is 13.6% and her 10 year risk is 7.6%. According to the ACR, ACS, and NCCN guidelines, an annual breast MRI exam along with mammogram is recommended if the patient's lifetime risk is 20% or greater. This exam was interpreted at Station ID: [id number]. NOTE: For mammograms, a report in lay terms will be sent to the patient. Approximately 15% of breast malignancies will not be visualized mammographically. In the management of a palpable breast mass, a negative mammogram must not discourage biopsy of a clinically suspicious lesion. Electronically Signed By: Alli boyd/ubaldo:12/02/2022 16:40:54 letter sent: Normal Exam ACR BI-RADS Category 1: Negative [id number]
== END ==
PROVIDERS: PCP Family Medicine; Referring Provider Internal Medicine; Visit Provider Internal Medicine
DX: Z12.31 Encounter for screening mammogram for malignant neoplasm of breast (principal)
CPT/HCPCS: 77063; 77067

== ENCOUNTER → 2023-03-25 10:36 | Outpatient (CLI) | payer MEDICARE, OTHER, SELFPAY ==
--- NOTE | 2023-03-25 | DI.RAD.S_ITS ---
PROCEDURE: XR FOOT RT MIN 3V INDICATIONS: right foot pain after injury 5 weeks ago TECHNIQUE: 3 views of the foot were acquired. COMPARISON: None. FINDINGS: Bones: There is a healing fracture of the proximal 3rd metatarsal. Soft tissues: No tibiotalar joint effusion. Achilles tendon appears normal. IMPRESSION: Healing proximal 3rd metatarsal fracture. Dictated by: Ani Cope M.D. on 03/25/2023 at 11:50 Transcribed by: GONZÁLEZ on 03/25/2023 at 11:52 Approved by: Ani Cope M.D. on 03/25/2023 at 16:47
== END ==
PROVIDERS: PCP Family Medicine; Referring Provider Registered Nurse; Visit Provider Registered Nurse
DX: S92.331D Displaced fracture of third metatarsal bone, right foot, subsequent encounter for fracture with routine healing (principal); M79.671 Pain in right foot; X58.XXXD Exposure to other specified factors, subsequent encounter
CPT/HCPCS: 73630

== ENCOUNTER → 2023-05-08 08:43 | Outpatient (CLI) | payer MEDICARE, OTHER, SELFPAY ==
--- NOTE | 2023-05-08 08:44 | DI.MRI.S_ITS ---
PROCEDURE: MR ABDOMEN WO/W CON INDICATIONS: 6 month follow up TECHNIQUE: Coronal HASTE, axial 2D FLASH in- and [id number]; axial breath-hold T2 FSE. Dynamic axial VIBE during the administration of contrast; post-contrast coronal VIBE or 2D FLASH with fat saturation from the hepatic dome to the iliac crests. Optional diffusion weighted imaging and ADC may be performed. COMPARISON: [facility], MR, MR ABDOMEN WO/W CON, 10/23/2022, 11:51. FINDINGS: Image quality: Excellent. Lung bases: No basal pleural effusions. Heart size is normal. Liver: Stable hemangiomas in segment 2 and segment 7. At the liver dome, there is a 5.6 x 5.4 cm cystic lesion with thin internal septations and no enhancing nodularity, previously 5.6 x 5.4 cm. There is mild peripheral enhancement. Additional punctate cysts are present. Minimal hepatic steatosis. Gallbladder and biliary tree: Gallbladder is absent. Macro cholecystectomy Spleen: Normal size. Pancreas: No ductal dilation. Adrenal glands: No adrenal nodules. Kidneys: No hydronephrosis. No solid mass. No complex renal cysts which requires follow-up. Nodes and vessels: No retroperitoneal or mesenteric adenopathy by size criteria. Aorta and inferior vena cava are normal in size. Bowel and peritoneum: Unenhanced bowel loops are normal in caliber. No free fluid. Bones and soft tissues: Small umbilical hernia containing fat. Bone marrow is normal in overall signal. IMPRESSION: Stable mildly complex cystic lesion in the liver dome measuring 5.6 x 5.4 cm. No nodules. Differential remains a biliary cystadenoma, sickle of infection or less likely cystadenocarcinoma. Interval cholecystectomy. Dictated by: Brian Hartley M.D. on 05/08/2023 at 11:15 Approved by: Brian Hartley M.D. on 05/08/2023 at 11:21
== END ==
PROVIDERS: PCP Family Medicine; Referring Provider Surgery; Visit Provider Surgery
DX: D13.4 Benign neoplasm of liver (principal); K42.9 Umbilical hernia without obstruction or gangrene; Z90.49 Acquired absence of other specified parts of digestive tract
CPT/HCPCS: 74183; A9579

== ENCOUNTER → 2023-05-14 10:10 | Outpatient (CLI) | payer MEDICARE, OTHER, SELFPAY ==
--- NOTE | 2023-05-14 | DI.RAD.S_ITS ---
PROCEDURE: XR FOOT RT MIN 3V INDICATIONS: Nondisplaced fracture of third metatarsal bone, left foot, s TECHNIQUE: 3 views of the foot were acquired. COMPARISON: Located [facility], , XR FOOT RT MIN 3V, 03/25/2023, 10:48. FINDINGS: Bones: Similar alignment of the previously demonstrated fracture of the proximal 3rd metatarsal. Fracture plane appears less conspicuous than before and bridging bony callus appears increased. Plantar and posterior calcaneal spurs are present. Soft tissues: No tibiotalar joint effusion. IMPRESSION: Similar alignment of the previously demonstrated 3rd metatarsal fracture. Dictated by: Maynor Frederick M.D. on 05/14/2023 at 18:15 Approved by: Maynor Frederick M.D. on 05/14/2023 at 18:16
== END ==
PROVIDERS: PCP Family Medicine; Referring Provider Family Medicine; Visit Provider Family Medicine
DX: S92.335D Nondisplaced fracture of third metatarsal bone, left foot, subsequent encounter for fracture with routine healing (principal); M77.31 Calcaneal spur, right foot; X58.XXXD Exposure to other specified factors, subsequent encounter
CPT/HCPCS: 73630

== ENCOUNTER 2023-05-28 20:28 | Emergency (ER) | payer MEDICARE, OTHER, SELFPAY ==
[2023-05-28 20:42] VITALS: BP 122/70; PULSE 63; RESP 18; TEMP 37.3; O2SAT 96; BMI 26.7
[2023-05-28] MEDS: TET,DIPH,PERTUSS(ACELL),VAC/PF 0.5 ML SYRINGE IM (21:15)
--- NOTE | 2023-05-28 21:16 | DI.RAD.S_ITS ---
PROCEDURE: XR TIBIA FIBULA LT 2V INDICATIONS: posterior lateral mid calf dog bite TECHNIQUE: 2 views of the tibia and fibula were acquired. COMPARISON: None. FINDINGS: Bones: No fractures or dislocations. No suspicious bony lesions. Soft tissues: No suspicious soft tissue calcifications or masses. IMPRESSION: 1. No fracture or dislocation. Dictated by: Stoney Brunson M.D. on 05/28/2023 at 23:06 Approved by: Stoney Brunson M.D. on 05/28/2023 at 23:06
--- NOTE | 2023-05-28 21:17 | ED.ANIMALBIT ---
HPI - Animal Bite General Chief Complaint: Animal Bite Stated Complaint: bit by dog Time Seen by Provider: 05/28/23 20:54 Source: patient Mode of arrival: Ambulatory History of Present Illness HPI narrative: Patient is a 68-year-old female who is here for evaluation of a dog bite to her left calf muscle. She states she was out walking when a dog that belongs to a neighbor came out and bit her in the leg. She states she is never seen this dog before but states that it does belong to an individual. Her daughter knows the individual who stated that the dog is up-to-date off its immunizations. Patient does need a tetanus shot. No other injuries from the event Related Data Home Medications Medication Instructions Recorded Confirmed amlodipine 2.5 mg tablet 2.5 mg PO DAILY 08/02/22 11/12/22 hydrochlorothiazide 25 mg tablet 25 mg PO DAILY 08/02/22 11/12/22 ivermectin 1 % topical cream See Rx Instructions .Route .COMPLEX 08/02/22 11/12/22 losartan 100 mg tablet 100 mg PO DAILY 08/02/22 11/12/22 potassium chloride 10 mEq 10 meq PO DAILY 08/02/22 11/12/22 tablet,extended release Previous Rx's Medication Instructions Recorded docusate sodium 100 mg capsule 100 mg PO BID #30 caps 11/05/22 (Colace) hydrocodone 5 mg-acetaminophen 325 1 tab PO Q6HR PRN pain #20 tabs 11/05/22 mg tablet ibuprofen 600 mg tablet 600 mg PO Q6H #20 tabs 11/05/22 Allergies Allergy/AdvReac Type Severity Reaction Status Date / Time amoxicillin [AMOXICILLIN] Allergy Unknown Itchy Verified 11/12/22 13:51 scalp Review of Systems Musculoskeletal Musculoskeletal: Reports system reviewed and no additional complaints, except as documented Integumentary/Breasts Skin/Breast: Reports system reviewed and no additional complaints, except as documented Patient History Medical History Anesthesia Cataract (~05/08/22) Diverticulosis HTN (hypertension) Rosacea Sinus drainage Skin cancer Symptomatic cholelithiasis Surgical History History of skin surgery (~06/13/22) Social History (Reviewed 05/29/23 @ 02:09 by DENIS Rivero marital status: unknown household members: family lives independently: Yes occupational status: employed Smoking Status: Former smoker alcohol intake: current substance use type: does not use Smoking Status: Former smoker alcohol intake frequency: a few times a week Substance Use Type: does not use Exam Initial Vital Signs Initial Vital Signs: Vital Signs Temperature 99.1 F 05/28/23 20:42 Pulse Rate 63 05/28/23 20:42 Respiratory Rate 18 05/28/23 20:42 Blood Pressure 122/70 05/28/23 20:42 Pulse Oximetry 96 05/28/23 20:42 Oxygen Delivery Method Room Air 05/28/23 20:42 Skin Other: Patient multiple small puncture wounds and skin abrasions in the posterior aspect of the left calf muscle. Extrem Other: Skin abrasions and puncture wounds to the posterior left calf. Course Orders Ordered: ED Orders 05/28/23 21:16 XR tibia fibula LT 2V Stat Discontinued Medications Diphtheria/Tetanus/Acell Pertussis (Tet,Diph,Pertuss(Acell),Vac/Pf 0.5 Ml Syringe) 0.5 ml IM .ONCE ONE Stop: 05/28/23 21:08 Last Admin: 05/28/23 21:15 Dose: 0.5 ml Documented By: GC Vital Signs Vital signs: Vital Signs - 8 hr 05/28/23 20:42 05/28/23 22:13 Temperature 99.1 F 98.3 F Pulse Rate 63 63 Respiratory Rate 18 16 Blood Pressure 122/70 122/62 Pulse Oximetry 96 93 Oxygen Delivery Method Room Air Room Air [facility] - Animal Bite Imaging Data Extremity x-ray #1: Radiologist's Impression: PROCEDURE:? XR TIBIA FIBULA LT 2V ? INDICATIONS:? posterior lateral mid calf dog bite ? TECHNIQUE:? 2 views of the tibia and fibula were acquired.? ? COMPARISON:? None. ? FINDINGS:? ? Bones:? No fractures or dislocations.? No suspicious bony lesions.? ? Soft tissues:? No suspicious soft tissue calcifications or masses.? ? IMPRESSION:? ? 1. No fracture or dislocation. [facility] Narrative Medical decision making narrative: Wounds were irrigated. No fractures or foreign bodies noted on the x-ray. Patient's tetanus was updated. The wounds are superficial. No suturing needed. No antibiotics needed given the location of the wound although the patient was given strict return precautions with regard to this. Low risk for rabies so we will hold on prophylaxis/treatment for this for now.. She was given return precautions. She expressed understanding and agreement. Discharge Plan Departure Patient Disposition: Home Clinical Impression: Dog bite Instructions: DI for Dog Bite Activity Restrictions/Additional Instructions: You can put topical antibiotic over the areas of the bite wound and shower like normal. No restrictions on your activities. Return to the emergency department for new or worsening symptoms. Prescriptions: No Action hydrochlorothiazide 25 mg tablet 25 mg PO DAILY amlodipine 2.5 mg tablet 2.5 mg PO DAILY ivermectin 1 % cream See Rx Instructions .ROUTE .COMPLEX Rx Instructions: rosacea losartan 100 mg tablet 100 mg PO DAILY potassium chloride 10 mEq tablet extended release 10 meq PO DAILY ibuprofen 600 mg tablet 600 mg PO Q6H Qty: 20 0RF Rx Instructions: alternate with norco OR tylenol (if norco is too strong) hydrocodone-acetaminophen 5-325 mg tablet 1 tab PO Q6HR PRN (Reason: pain) Qty: 20 0RF Rx Instructions: May take 1-2 tabs as needed every 6 hours. alternate with advil to take a pain medicine every 3 hours while awake. docusate sodium [Colace] 100 mg capsule 100 mg PO BID Qty: 30 0RF Rx Instructions: Take while taking [place] for pain to prevent constipation. Call office if you become constipated, or take another over the counter medication in addition. Referrals: Diane Ruiz MD [Primary Care Provider] - Stand Alone Forms: Patient Portal/API
[2023-05-28 22:13] VITALS: BP 122/62; PULSE 63; RESP 16; TEMP 36.8; O2SAT 93
== END 2023-05-28 23:03 | disposition home or self-care (01) ==
PROVIDERS: Emergency Provider Emergency Medicine; PCP Family Medicine
DX: S81.852A Open bite, left lower leg, initial encounter (principal); W54.0XXA Bitten by dog, initial encounter; Z23 Encounter for immunization
CPT/HCPCS: 73590; 90471; 99283; 90715

== ENCOUNTER → 2023-06-17 | Outpatient (CLI) | payer MEDICARE, OTHER, SELFPAY ==
--- NOTE | 2023-06-17 | DI.RAD.S_ITS ---
Bone Density Report Name: ALFONZO TREJO Age: 68 Sex: Female Ethnicity: White Date of : 1955 Indication: osteopenia; monitoring treatment; Referring Provider: PEDRO LUIS THOMPSON Study: Bone densitometry was performed. Exam Date: June 17, 2023 Accession number: [id number] Bone Density: Region BMD T-score Z-score Classification AP Spine(L1-L4) 0.843 -1.9 0.2 Osteopenia Femoral Neck (Left) 0.688 -1.4 0.3 Osteopenia Total Hip (Left) 0.771 -1.4 0.1 Osteopenia Femoral Neck (Right) 0.664 -1.7 0.1 Osteopenia Total Hip (Right) 0.776 -1.4 0.1 Osteopenia Total Hip Mean 0.773 -1.4 0.1 Osteopenia World Health Organization criteria for BMD impression classify patients as: Normal (T-score at or above -1.0), Osteopenia (T-score between -1.0 and -2.5), or Osteoporosis (T-score at or below -2.5). 10-year Fracture Risk: FRAX not reported because: Treated for osteoporosis Previous Exams: -- Region Exam Age BMD T-score BMD Change BMD Change Date g/cm2 vs Baseline vs Previous -- AP Spine (L1-L4) 06/17/2023 68 0.843 -1.9 -0.029 (-3.3%)# -0.029 (-3.3%)# 11/28/2021 66 0.872 -1.6 Total Hip(Left) 06/17/2023 68 0.771 -1.4 -0.016 (-2.0%)# -0.016 (-2.0%)# 11/28/2021 66 0.787 -1.3 Total Hip(Right) 06/17/2023 68 0.776 -1.4 0.013 (1.7%)# 0.013 (1.7%)# 11/28/2021 66 0.763 -1.5 -- *Denotes significance at 95% confidence level, LSC for AP Spine = 0.022 g/cm2, LSC for Total Hip = 0.027 g/cm2 # Denotes dissimilar scan types or analysis methods Impression: The patient has low bone mass, based on the Total Spine T-score. No significant bone loss was observed. Discussion: PATIENT UNDER TREATMENT WITH NO SIGNIFICANT BMD LOSS SINCE LAST EXAM. In an untreated patient, BMD typically declines with age. A lack of decline or gain is usually a sign that treatment is efficacious and fracture risk is reduced. It is important to ask patients whether they are taking their medications and to encourage continued and appropriate compliance with their osteoporosis therapies to reduce fracture risk. It is also important to review their risk factors and encourage appropriate calcium and vitamin D intakes, exercise, fall prevention and other lifestyle measures. Follow-Up: Consider a repeat BMD and Vertebral Fracture Assessment (VFA) exam in 2 years or sooner if medically necessary, to reassess this patient's status. Reported by: SHERINE HOOK M.D. on 06/17/2023 11:35:00 AM.
== END ==
LOC: RAD 11:13
PROVIDERS: PCP Family Medicine; Referring Provider Family Medicine; Visit Provider Family Medicine
DX: M85.88 Other specified disorders of bone density and structure, other site; Z78.0 Asymptomatic menopausal state
CPT/HCPCS: 77080

== ENCOUNTER → 2023-12-03 | Outpatient (CLI) | payer MEDICARE, OTHER, SELFPAY ==
--- NOTE | 2023-12-03 | DI.MG.S_ITS ---
BILATERAL DIGITAL SCREENING MAMMOGRAM 3D/2D WITH CAD: 12/03/2023 CLINICAL: Routine screening. Comparison is made to exams dated: 12/02/2022 mammogram, 06/13/2022 mammogram, 11/28/2021 mammogram, 10/24/2021 mammogram, and 10/05/2020 mammogram - [facility]. Both breasts are extremely dense, which lowers the sensitivity of mammography (category d />75% glandular tissue). Current study was also evaluated with a Computer Aided Detection (CAD) system. No significant masses, calcifications, or other findings are seen in either breast. There has been no significant interval change. IMPRESSION: NEGATIVE There is no mammographic evidence of malignancy. A 1 year screening mammogram is recommended. Based on the Tyrer Cuzick model (a risk assessment model) the patient's lifetime risk is 12.9% and her 10 year risk is 7.7%. According to the ACR, ACS, and NCCN guidelines, an annual breast MRI exam along with mammogram is recommended if the patient's lifetime risk is 20% or greater. This exam was interpreted at Station ID: [id number]. NOTE: For mammograms, a report in lay terms will be sent to the patient. Approximately 15% of breast malignancies will not be visualized mammographically. In the management of a palpable breast mass, a negative mammogram must not discourage biopsy of a clinically suspicious lesion. Electronically Signed By: Adalberto glynn/ubaldo:12/11/2023 13:28:43 letter sent: Normal Exam ACR BI-RADS Category 1: Negative 3341F
== END ==
LOC: MAMMO 14:44
PROVIDERS: PCP Family Medicine; Referring Provider Family Medicine; Visit Provider Family Medicine
DX: Z12.31 Encounter for screening mammogram for malignant neoplasm of breast (principal); R92.343 Mammographic extreme density, bilateral breasts
CPT/HCPCS: 77063; 77067

== ENCOUNTER → 2024-03-24 15:23 | Outpatient (CLI) | payer MEDICARE, OTHER, SELFPAY ==
--- NOTE | 2024-03-24 15:25 | DI.RAD.S_ITS ---
PROCEDURE: XR KNEE LT 3V INDICATIONS: L KNEE PAIN TECHNIQUE: 3 views of the knee were acquired. COMPARISON: [facility], , XR KNEE LT 3V, 09/04/2020, 16:02. FINDINGS: Bones: No fractures or dislocations. Mild tricompartmental osteoarthritis is seen with joint space narrowing and subchondral sclerosis. No significant patellar subluxation. No suspicious bony lesions. Soft tissues: Small joint effusion. No suspicious soft tissue calcifications. IMPRESSION: No acute fracture or dislocation. Mild tricompartmental osteoarthritis and small joint effusion. Dictated by: Jairo Krueger M.D. on 03/24/2024 at 17:30 Approved by: Jairo Krueger M.D. on 03/24/2024 at 17:30
== END ==
PROVIDERS: PCP Family Medicine; Referring Provider Family Medicine; Visit Provider Family Medicine
DX: M17.12 Unilateral primary osteoarthritis, left knee (principal); M25.462 Effusion, left knee; M25.562 Pain in left knee
CPT/HCPCS: 73562

== ENCOUNTER 2024-03-26 18:17 | Emergency (ER) | payer MEDICARE, OTHER, SELFPAY ==
[2024-03-26 18:25] VITALS: BP 157/80; PULSE 82; RESP 18; TEMP 36.8; O2SAT 95; BMI 28.2
--- NOTE | 2024-03-26 18:41 | ED.ABDPAIN ---
HPI - Abdominal Pain General Chief Complaint: Abdominal Pain Stated Complaint: left lower abd pain Time Seen by Provider: 03/26/24 18:30 Source: patient Mode of arrival: Ambulatory History of Present Illness HPI narrative: Patient 68-year-old female who presents today with left lower quadrant pain. He is history of hypertension hyperlipidemia. She reports that she woke up this morning with pain she has tender no fever chills nausea or vomiting. No painful frequent urination. She denies any sort of back pain. Related Data Home Medications Medication Instructions Recorded Confirmed amlodipine 2.5 mg tablet 2.5 mg PO DAILY 08/02/22 08/13/23 hydrochlorothiazide 25 mg tablet 25 mg PO DAILY 08/02/22 08/13/23 ivermectin 1 % topical cream See Rx Instructions .Route .COMPLEX 08/02/22 08/13/23 losartan 100 mg tablet 100 mg PO DAILY 08/02/22 08/13/23 potassium chloride 10 mEq 10 meq PO DAILY 08/02/22 08/13/23 tablet,extended release Previous Rx's Medication Instructions Recorded docusate sodium 100 mg capsule 100 mg PO BID #30 caps 11/05/22 (Colace) hydrocodone 5 mg-acetaminophen 325 1 tab PO Q6HR PRN pain #20 tabs 11/05/22 mg tablet ibuprofen 600 mg tablet 600 mg PO Q6H #20 tabs 11/05/22 ciprofloxacin HCl 500 mg tablet 500 mg PO BID #20 tabs 03/26/24 (Cipro) metronidazole 500 mg tablet 500 mg PO Q8H 10 days #30 tabs 03/26/24 Allergies Allergy/AdvReac Type Severity Reaction Status Date / Time amoxicillin [AMOXICILLIN] Allergy Unknown Itchy Verified 03/26/24 18:32 scalp Patient History Medical History Anesthesia Sinus drainage Skin cancer Diverticulosis Symptomatic cholelithiasis Rosacea HTN (hypertension) Cataract (~05/08/22) Surgical History History of skin surgery (~06/13/22) Social History marital status: unknown household members: family lives independently: Yes occupational status: employed Smoking Status: Former smoker alcohol intake: current substance use type: does not use Smoking Status: Former smoker alcohol intake frequency: 3 or more drinks per day Alcohol type: wine Substance Use Type: does not use Exam Initial Vital Signs Initial Vital Signs: Vital Signs Temperature 98.2 F 03/26/24 18:25 Pulse Rate 82 03/26/24 18:25 Respiratory Rate 18 03/26/24 18:25 Blood Pressure 157/80 H 03/26/24 18:25 Pulse Oximetry 95 03/26/24 18:25 Oxygen Delivery Method Room Air 03/26/24 18:25 GENERAL: Alert pleasant well-appearing 68-year-old female and in no acute distress. HEENT: Head atraumatic,EOMI, pupils reactive, face symmetric, moist mucous membranes CARDIOVASCULAR: Regular rate and rhythm without murmurs, rubs or gallops. RESPIRATORY: Breath sounds equal bilaterally, no wheezes rales or rhonchi. ABDOMEN: Soft, tender with guarding left lower quadrant : No CVA tenderness EXTREMITIES: Normal range of motion, no clubbing or edema. Neurovascularly intact NEUROLOGICAL: Alert and oriented x4.Normal gait and speech. SKIN: Warm, dry, no laceration, no petechiae, no rashes or lesions. Course Orders Ordered: ED Orders 03/26/24 18:40 Complete Blood Count AUTO DIFF Stat Comprehensive Metabolic Panel Stat Lipase Stat 03/26/24 19:16 CT abdomen pelvis w con Stat Discontinued Medications Ciprofloxacin (Ciprofloxacin 250 Mg Tablet) 500 mg PO NOW ONE Stop: 03/26/24 20:29 Last Admin: 03/26/24 20:54 Dose: 500 mg Documented By: LYNETTE Metronidazole (Metronidazole 500 Mg Tablet) 500 mg PO NOW ONE Stop: 03/26/24 20:29 Last Admin: 03/26/24 20:54 Dose: 500 mg Documented By: LYNETTE Vital Signs Vital signs: Vital Signs - 8 hr 03/26/24 18:25 03/26/24 21:02 Temperature 98.2 F Pulse Rate 82 72 Respiratory Rate 18 18 Blood Pressure 157/80 H 136/66 Pulse Oximetry 95 98 Oxygen Delivery Method Room Air Room Air MDM - Abdominal Pain Lab Data 03/26/24 18:40 03/26/24 18:40 Labs: Lab Results 03/26/24 Range/Units 18:40 WBC 10.1 (4.5-11.0) X10^3/uL RBC 4.29 (4.0-5.2) X10^6/uL Hgb 13.4 (12.0-16.0) g/dL Hct 39.8 (36-46) % MCV 92.8 (80-100) fL MCH 31.3 (26-34) PG MCHC 33.7 (30-36) % RDW 14.5 (11.6-14.8) % Plt Count 313 (150-400) X10^3/uL Neut % (Auto) 60.1 (50-75) % Lymph % (Auto) 29.3 (25-40) % [place] % (Auto) 8.0 (3-14) % Eos % (Auto) 1.8 L (2-4) % Baso % (Auto) 0.8 (0-2) % Neut # (Auto) 6100 (7214-0660) /uL Lymph # (Auto) 3000 (6485-3873) /uL [place] # (Auto) 800 (0-900) /uL Eos # (Auto) 200 (0-450) /uL Baso # (Auto) 100 (0-100) /uL Sodium 139 (137-145) mmol/L Potassium 3.8 (3.4-5.1) mmol/L Chloride 108 H (98-107) mmol/L Carbon Dioxide 29 (22-32) mmol/L BUN 14 (7-17) mg/dL Creatinine 0.74 (0.52-1.04) mg/dL Estimated GFR > 60 (>60) mL/min BUN/Creatinine Ratio 18.9 (6-22) Glucose 101 (80-110) mg/dL Calcium 9.2 (8.4-10.2) mg/dL Total Bilirubin 0.9 (0.2-1.3) mg/dL AST 23 (14-36) IU/L ALT 18 (<35) IU/L Alkaline Phosphatase 104 (38-126) U/L Total Protein 7.7 (6.3-8.2) g/dL Albumin 4.2 (3.5-5.0) g/dL Globulin 3.5 (1.7-4.1) g/dL Albumin/Globulin Ratio 1.2 (1.0-2.8) Lipase 83 (23-300) U/L Point of care testing: Urine Dip Bedside Urine Glucose Negative Bedside Urine Bilirubin - Negative Bedside Urine Ketone - Negative Urine Specific [place] 1.030 Bedside Urine Occult Blood - Negative Bedside Urine pH 6.0 Bedside Urine Protein - Negative Bedside Urine Urobilinogen - Negative Bedside Urine Nitrite - Negative Bedside Urine Leukocytes - Negative Esterase Imaging Data CT scan - abdomen/pelvis: Radiologist's Impression: PROCEDURE: CT ABDOMEN PELVIS W CON INDICATIONS: LLQ pain TECHNIQUE: After the administration of intravenous contrast, axial sections acquired from the lung bases to the pubic symphysis. Coronal and sagittal reformats were performed. For radiation dose reduction, the following was used: automated exposure control, adjustment of mA and/or kV according to patient size. COMPARISON: [facility], CT, CT ABDOMEN PANCREATIC PROTOCOL, 09/14/2022, 8:56. FINDINGS: Image quality: Diagnostic. Lower Chest: Emphysematous changes are noted at the lung bases. Small hiatal hernia. ABDOMEN: Liver: No solid mass. Right hepatic simple appearing cyst. Additional subcentimeter hypodensities which are too small technique characterize. Gallbladder: Surgically absent. Biliary ducts: No biliary dilation. Pancreas: No ductal dilation. Spleen: Size is within normal limits. Adrenal Glands: No adrenal nodules. Kidneys and Ureters: No hydronephrosis. No solid mass. No complex renal cystic lesion which requires follow up. Stomach and Bowel: Diverticulosis. Wall thickening and surrounding inflammation involving the distal descending and proximal sigmoid colon. No extraluminal gas or organized fluid collections. Normal appendix. Peritoneum: No abnormal intraperitoneal fluid. No free air. Ventral Wall: No significant ventral hernia. Abdominal Nodes: No retroperitoneal or mesenteric adenopathy by size criteria. Vessels: Aorta and inferior vena cava are normal in size. Atherosclerotic vascular calcifications. PELVIS: Pelvic Organs: Unremarkable. Bladder: No bladder wall thickening, accounting for underdistention. Pelvic Nodes: No enlarged lymph nodes. Miscellaneous: No inguinal hernias are seen. Bones: No aggressive osseous abnormality. Degenerative changes of the spine, most pronounced at L5-S1. IMPRESSION: Findings consistent with acute uncomplicated diverticulitis involving the distal descending and proximal sigmoid colon. No extraluminal gas or organized fluid collections. Dictated by: Donovan Jose M.D. on 03/26/2024 at 19:57 MDM Narrative Medical decision making narrative: Patient 68-year-old female presents today with left lower quadrant pain ongoing for 1 day. No fever she is quite tender in the left lower quadrant. No fever. Blood work has been reviewed she has no leukocytosis with a WBC of 10. Other blood work is overall reassuring. CT confirms uncomplicated diverticulitis. She is given her 1st dose of Cipro and Flagyl here in the ED. She is offered pain medication but declines. Discharge Plan Departure Patient Disposition: Home Clinical Impression: Diverticulitis Instructions: DI for Diverticulitis Activity Restrictions/Additional Instructions: *You have been diagnosed with diverticulitis *What to do: At this time you have diverticulitis which will resolve with antibiotics. Please talk to your PCP about a colonoscopy *Continue to take medications as directed Cipro 500 mg twice a day for 10 days Flagyl 500 mg 3 times a day for 10 days Tylenol Motrin as needed for pain *Follow up with your primary care provider in 2-3 days or call [phone] \ *Return to ER if you should have increasing pain fever bloody stool [or] any new, worsening or concerning symptoms Prescriptions: New metronidazole 500 mg tablet 500 mg PO Q8H 10 Days Qty: 30 0RF ciprofloxacin HCl [Cipro] 500 mg tablet 500 mg PO BID Qty: 20 0RF No Action hydrochlorothiazide 25 mg tablet 25 mg PO DAILY amlodipine 2.5 mg tablet 2.5 mg PO DAILY ivermectin 1 % cream See Rx Instructions .ROUTE .COMPLEX Rx Instructions: rosacea losartan 100 mg tablet 100 mg PO DAILY potassium chloride 10 mEq tablet extended release 10 meq PO DAILY ibuprofen 600 mg tablet 600 mg PO Q6H Qty: 20 0RF Rx Instructions: alternate with norco OR tylenol (if norco is too strong) hydrocodone-acetaminophen 5-325 mg tablet 1 tab PO Q6HR PRN (Reason: pain) Qty: 20 0RF Rx Instructions: May take 1-2 tabs as needed every 6 hours. alternate with advil to take a pain medicine every 3 hours while awake. docusate sodium [Colace] 100 mg capsule 100 mg PO BID Qty: 30 0RF Rx Instructions: Take while taking [place] for pain to prevent constipation. Call office if you become constipated, or take another over the counter medication in addition. Referrals: Diane Ruiz MD [Primary Care Provider] - Stand Alone Forms: Patient Portal/API
[2024-03-26 18:49] LABS: Add Manual Diff / Slide Review NO; Basophils Absolute Auto 100 /uL (0-100); Basophils Percent Auto 0.8 % (0-2); Eosinophils Absolute Auto 200 /uL (0-450); Eosinophils Percent Auto 1.8 % (2-4); Hematocrit 39.8 % (36-46); Hemoglobin 13.4 g/dL (12.0-16.0); Lymphocytes Absolute Auto 3000 /uL (1100-4500); Lymphocytes Percent Auto 29.3 % (25-40); Mean Corpuscular HGB Conc 33.7 % (30-36); Mean Corpuscular Hemoglobin 31.3 PG (26-34); Mean Corpuscular Volume 92.8 fL (80-100); Monocytes Absolute Auto 800 /uL (0-900); Neutrophils Absolute Auto 6100 /uL (1500-7000); Neutrophils Percent Auto 60.1 % (50-75); Platelet Count 313 X10^3/uL (150-400); Red Blood Cell Count 4.29 X10^6/uL (4.0-5.2); Red Cell Distribution Width 14.5 % (11.6-14.8); White Blood Cell Count 10.1 X10^3/uL (4.5-11.0)
--- NOTE | 2024-03-26 19:16 | DI.CT.S_ITS ---
PROCEDURE: CT ABDOMEN PELVIS W CON INDICATIONS: LLQ pain TECHNIQUE: After the administration of intravenous contrast, axial sections acquired from the lung bases to the pubic symphysis. Coronal and sagittal reformats were performed. For radiation dose reduction, the following was used: automated exposure control, adjustment of mA and/or kV according to patient size. COMPARISON: [facility], CT, CT ABDOMEN PANCREATIC PROTOCOL, 09/14/2022, 8:56. FINDINGS: Image quality: Diagnostic. Lower Chest: Emphysematous changes are noted at the lung bases. Small hiatal hernia. ABDOMEN: Liver: No solid mass. Right hepatic simple appearing cyst. Additional subcentimeter hypodensities which are too small technique characterize. Gallbladder: Surgically absent. Biliary ducts: No biliary dilation. Pancreas: No ductal dilation. Spleen: Size is within normal limits. Adrenal Glands: No adrenal nodules. Kidneys and Ureters: No hydronephrosis. No solid mass. No complex renal cystic lesion which requires follow up. Stomach and Bowel: Diverticulosis. Wall thickening and surrounding inflammation involving the distal descending and proximal sigmoid colon. No extraluminal gas or organized fluid collections. Normal appendix. Peritoneum: No abnormal intraperitoneal fluid. No free air. Ventral Wall: No significant ventral hernia. Abdominal Nodes: No retroperitoneal or mesenteric adenopathy by size criteria. Vessels: Aorta and inferior vena cava are normal in size. Atherosclerotic vascular calcifications. PELVIS: Pelvic Organs: Unremarkable. Bladder: No bladder wall thickening, accounting for underdistention. Pelvic Nodes: No enlarged lymph nodes. Miscellaneous: No inguinal hernias are seen. Bones: No aggressive osseous abnormality. Degenerative changes of the spine, most pronounced at L5-S1. IMPRESSION: Findings consistent with acute uncomplicated diverticulitis involving the distal descending and proximal sigmoid colon. No extraluminal gas or organized fluid collections. Dictated by: Donovan Jose M.D. on 03/26/2024 at 19:57 Approved by: Donovan Jose M.D. on 03/26/2024 at 20:01
[2024-03-26 19:19] LABS: Alanine Aminotransferase 18 IU/L (<35); Albumin 4.2 g/dL (3.5-5.0); Albumin Globulin Ratio 1.2 (1.0-2.8); Alkaline Phosphatase 104 U/L (38-126); Aspartate Aminotransferase 23 IU/L (14-36); BUN Creatinine Ratio 18.9 (6-22); Bilirubin Total 0.9 mg/dL (0.2-1.3); Blood Urea Nitrogen 14 mg/dL (7-17); Calcium 9.2 mg/dL (8.4-10.2); Carbon Dioxide 29 mmol/L (22-32); Chloride 108 mmol/L (98-107); Estimated Glomerular Filt Rate > 60 mL/min (>60); Globulin 3.5 g/dL (1.7-4.1); Glucose 101 mg/dL (80-110); HEMOLYSIS < 15 (0-50); Lipase 83 U/L (23-300); Potassium 3.8 mmol/L (3.4-5.1); Sodium 139 mmol/L (137-145); Total Protein 7.7 g/dL (6.3-8.2)
[2024-03-26] MEDS: metroNIDAZOLE 500 MG TABLET PO (20:54)
[2024-03-26] MEDS: CIPROFLOXACIN 250 MG TABLET 500 MG PO (20:54)
[2024-03-26 21:02] VITALS: BP 136/66; PULSE 72; RESP 18; O2SAT 98
== END 2024-03-26 21:07 | disposition home or self-care (01) ==
PROVIDERS: Emergency Provider Emergency Medicine; PCP Family Medicine
DX: K57.92 Diverticulitis of intestine, part unspecified, without perforation or abscess without bleeding (principal)
CPT/HCPCS: 36415; 74177; 80053; 81003; 83690; 85025; 99283; 99284; Q9967

== ENCOUNTER → 2024-04-01 12:14 | Outpatient (CLI) | payer MEDICARE, OTHER, SELFPAY ==
--- NOTE | 2024-04-01 12:15 | DI.MRI.S_ITS ---
PROCEDURE: MR KNEE LT WO CON INDICATIONS: Left knee pain:liver mass TECHNIQUE: Noncontrast sagittal PD fast spin echo and T2 fast spin echo with fat saturation, sagittal 3-D FLASH with fat saturation; coronal T1 spin echo and PD fast spin echo with fat saturation, and axial PD fast spin echo with fat saturation through the knee. COMPARISON: [facility], CR, XR KNEE LT 3V, 03/24/2024, 15:28. FINDINGS: Image quality: Excellent. Anterior cruciate ligament: Intact. Posterior cruciate ligament: Intact. Medial collateral ligament: Mild edema adjacent to the proximal medial collateral ligament with fluid signal near the origin, consistent with grade 2 sprain/partial tear. Lateral collateral ligament: Intact. Medial meniscus: Intact. Lateral meniscus: Intact. Medial and lateral tendons: The semimembranosus tendon insertions appear intact. Visualized portions of the pes anserinus tendons appear normal. The popliteus tendon is intact. Iliotibial band appears normal. Anterior structures: The quadriceps and patellar tendons appear intact. No patellar subluxation. No femoral trochlear dysplasia or ventral trochlear prominence. No edema in the infrapatellar fat pad. Bones and cartilage: Osseous edema is seen in the anterior aspect of the central tibial plateau with central fluid signal intensity that appears to track back to a cartilage defect at the medial tibial plateau. Medial femorotibial cartilage: Focal osteochondral defect at the anterior weight-bearing portion of the medial femoral condyle measuring approximately 3 x 5 mm. There is grade 3-4 cartilage loss throughout the weight-bearing portion of the medial femorotibial compartment. Lateral femorotibial cartilage: Mild partial-thickness cartilage thinning. Patellofemoral cartilage: Moderate cartilage thinning and irregularity at the median ridge/medial facet of the patella with mild subchondral edema. Partial-thickness cartilage loss is seen in the trochlear groove. Soft tissues: Small joint effusion is present. Trace medial popliteal cyst. No intra-articular loose body identified. Musculature surrounding the knee is normal in bulk. Mild nonspecific subcutaneous prepatellar soft tissue edema. Small ganglion cyst adjacent to the origin of the lateral head of the gastrocnemius muscle measures approximately 11 x 7 x 7 mm. Additional ganglion cyst adjacent to the medial head of the gastrocnemius origin measures 9 x 5 by 5 mm. IMPRESSION: 1. Grade 2 sprain/partial tear of the proximal medial collateral ligament. 2. Moderate osseous edema is seen throughout the anterior portion of the central tibial plaque toe. There is central fluid signal that appears to track back to the medial tibial plateau articular surface and may represent an intraosseous ganglion versus possibly a prominent dissecting subchondral cystic changes or less likely a lymphovascular malformation. 3. Focal small chronic osteochondral lesion at the anterior weight-bearing portion of the medial femoral condyle measures 3 x 5 mm with adjacent subchondral edema as described above. Grade 3-4 chondromalacia throughout the medial femorotibial compartment. There is grade 2 cartilage thinning in the medial compartment and grade 2-3 chondromalacia in the patellofemoral compartment. 4. Small joint effusion. Small pericapsular ganglion cysts. Approved by: Maynor Francis M.D. on 04/01/2024 at 16:03
--- NOTE | 2024-04-01 12:16 | DI.MRI.S_ITS ---
PROCEDURE: MR ABDOMEN LIVER PROTOCOL INDICATIONS: Left knee pain:liver mass TECHNIQUE: Coronal HASTE, axial 2D FLASH in- and [id number]; axial breath-hold T2 FSE. Dynamic axial VIBE during the administration of contrast; post-contrast coronal VIBE or 2D FLASH with fat saturation from the hepatic dome to the iliac crests. Optional diffusion weighted imaging and ADC may be performed. COMPARISON: [facility], MR, MR ABDOMEN WO/W CON, 05/08/2023, 8:46. [facility], CT, CT ABDOMEN PELVIS W CON, 03/26/2024, 19:43. FINDINGS: Image quality: Diagnostic Lung bases: No basal pleural effusions. Small hiatal hernia. Liver: Thin-walled lobulated, multi septated cystic structure in segment eight measures 6.0 x 5.5 cm, previously 5.8 x 5.5 cm when remeasured. Minimal enhancement of septations. No mural nodularity. No irregular wall thickening. Anterior subcapsular segment two 1.4 cm hemangioma is redemonstrated. Segment seven hemangioma is less well seen on the current study. Subcentimeter scattered cysts. Gallbladder: Surgically absent. Biliary ducts: Appropriate biliary tree caliber post cholecystectomy. The common duct tapers and there are no visible filling defects. Pancreas: Normal size and morphology without visible ductal dilatation or inflammation. Spleen: Size is within normal limits. Adrenal Glands: No adrenal nodules. Kidneys and Ureters: Symmetric enhancement. Subcentimeter right lower pole cortical cyst. No solid masses or hydronephrosis. Stomach and Bowel: Stomach and visible bowel loops are within normal limits. Peritoneum: No abnormal intraperitoneal fluid. No free air. Ventral Wall: No hernia. Abdominal Nodes: No retroperitoneal or mesenteric adenopathy by size criteria. Vessels: The abdominal aorta, IVC, and portal vein are of normal caliber. Bones: No aggressive osseous abnormality. IMPRESSION: Stable size of a benign-appearing septated liver cyst. Expected appearance of the biliary tree post cholecystectomy. Dictated by: Liza Buchanan M.D. on 04/01/2024 at 17:20 Approved by: Liza Buchanan M.D. on 04/01/2024 at 17:32
== END ==
LOC: MRI 12:15
PROVIDERS: PCP Family Medicine; Referring Provider Family Medicine; Visit Provider Family Medicine
DX: D18.09 Hemangioma of other sites (principal); K44.9 Diaphragmatic hernia without obstruction or gangrene; K76.89 Other specified diseases of liver; R16.0 Hepatomegaly, not elsewhere classified; M25.562 Pain in left knee; M25.462 Effusion, left knee; Z90.49 Acquired absence of other specified parts of digestive tract
CPT/HCPCS: 73721; 74183; A9579

== ENCOUNTER → 2024-09-01 13:13 | Outpatient (CLI) | payer MEDICARE, OTHER, SELFPAY ==
--- NOTE | 2024-09-01 13:15 | DI.MRI.S_ITS ---
PROCEDURE: MR KNEE LT WO CON INDICATIONS: UNILATERAL PRIMARY OSTEOARTHRITIS, LEFT KNEE TECHNIQUE: Noncontrast sagittal PD fast spin echo and T2 fast spin echo with fat saturation, sagittal 3-D FLASH with fat saturation; coronal T1 spin echo and PD fast spin echo with fat saturation, and axial PD fast spin echo with fat saturation through the knee. COMPARISON: [facility], CR, XR KNEE 4+ VIEWS LEFT, 08/26/2024, 11:36. [facility], MR, MR KNEE LT WO CON, 04/01/2024, 12:39. FINDINGS: Image quality: Excellent. Bones: Mild subchondral marrow edema is present at the anterior and posterior medial tibial plateau (/; 03/03). The previously noted marrow edema at the central tibial plateau has resolved. There is no acute fracture or dislocation. Joints: There is a small knee joint effusion. There is mild knee osteoarthritis. Munoz's cyst: None. Menisci: The medial meniscus is normal. The lateral meniscus is normal. The posterior root attachments are normal. Cruciate ligaments: The anterior cruciate ligament is normal. The posterior cruciate ligament is normal. Collateral ligaments: The medial collateral ligament complex is mildly thickened with low signal. The lateral collateral ligament complex is normal. Popliteus Muscle/Tendon: The popliteus muscle and tendon are normal. Extensor mechanism: The quadriceps tendon is mildly thickened with low signal. The patellar tendon is normal. The medial and lateral patellar retinacular attachments are normal. Articular cartilage: Re-identified are areas of partial thickness chondral loss and subchondral cyst formation at the medial patellofemoral compartment and median patellar ridge (02/21). Partial-thickness chondral loss is present at the weight-bearing medial compartment (18). Additional partial-thickness chondral loss is present at the posterior nonweightbearing medial femoral condyle (7/7). Other: Re-identified small ganglion cysts associated with the popliteal myotendinous junction (08/06). IMPRESSION: 1. Mild knee osteoarthritis with reactive marrow edema at the medial tibial plateau and associated articular cartilage defects. 2. Chronic MCL sprain. 3. Mild quadriceps tendinosis. Dictated by: Min Gonzalez M.D. on 09/02/2024 at 11:24 Approved by: Min Gonzalez M.D. on 09/02/2024 at 11:47
== END ==
PROVIDERS: PCP Family Medicine; Referring Provider Orthopaedic Surgery Adult Reconstructive Orthopaedic Surgery; Visit Provider Orthopaedic Surgery Adult Reconstructive Orthopaedic Surgery
DX: S83.412A Sprain of medial collateral ligament of left knee, initial encounter (principal); M17.12 Unilateral primary osteoarthritis, left knee; M25.462 Effusion, left knee
CPT/HCPCS: 73721

== ENCOUNTER → 2024-12-20 14:38 | Outpatient (CLI) | payer MEDICARE, OTHER, SELFPAY ==
--- NOTE | 2024-12-20 14:40 | DI.MG.S_ITS ---
MM screening mammo BI: 12/20/2024. BI-RADS: 1 CLINICAL: 69-year old female for bilateral screening mammogram. Tyrer-Cuzick lifetime risk of 8.7%. No personal or first-degree family history of breast cancer. PRIOR EXAMS 12/03/2023, 12/02/2022, 06/13/2022, 11/28/2021, 10/24/2021, 10/05/2020, 08/17/2019, 08/10/2018. MAMMOGRAPHY TECHNIQUE: 2D and 3D (tomosynthesis) digital mammographic views obtained, with additional images as needed for full coverage. Current study was also evaluated with a Computer Aided Detection (CAD) system. DENSITY D. The breasts are extremely dense, which lowers the sensitivity of mammography. MAMMOGRAPHY FINDINGS Bilateral: No suspicious mass, asymmetry, microcalcification, or other abnormality seen. IMPRESSION: * No evidence of malignancy. RECOMMENDATIONS Bilateral * Annual screening mammography. OVERALL ASSESSMENT CATEGORY BI-RADS-1: Negative. The [employer] recommends annual screening mammography beginning at age 40 for women with average risk of breast cancer. ELECTRONICALLY SIGNED: Lynn Arreguin M.D. on 12/21/2024 at 07:58:59 PM PT Interpreting Station ID: [id number]
== END ==
LOC: MAMMO 14:39
PROVIDERS: PCP Family Medicine; Referring Provider Family Medicine; Visit Provider Family Medicine
DX: Z12.31 Encounter for screening mammogram for malignant neoplasm of breast (principal); R92.30 Dense breasts, unspecified
CPT/HCPCS: 77063; 77067

== ENCOUNTER → 2025-07-25 09:28 | Outpatient (CLI) | payer MEDICARE, OTHER, SELFPAY ==
--- NOTE | 2025-07-25 09:29 | DI.RAD.S_ITS ---
PROCEDURE: XR DEXA AXIAL SKELETON INDICATIONS: Osteoporosis Screening COMPARISON: [facility], CR, XR DEXA AXIAL SKELETON, 06/17/2023, 11:25. FINDINGS: Lumbar Spine: Bone mineral density 0.823 g/cm2, T score -2.0, compared to -1.9. Left Femoral Neck: Bone mineral density 0.664 g/cm2, T score -1.7, compared to -1.4 demonstrating loss of approximate 4% bone mineral density. Left Hip: Bone mineral density 0.760 g/cm2, T score -1.5, compared to -1.4. Fracture Risk Calculation (when applicable): 10-year fracture risk of a major osteoporotic fracture 17 percent and of a hip fracture 4.4 percent. (T score greater or equal to -1.0 to: NORMAL) (T score from -1.1 to -2.4: OSTEOPENIA) (T score less than or equal to -2.5: OSTEOPOROSIS) IMPRESSION: Persistent osteopenia with most notable progression at the left femoral neck as above. Follow-up guidelines as follows: Osteoporosis: Consider a repeat DEXA and Vertebral Fracture Assessment (VFA) exam in 2 years or sooner if medically necessary, to reassess this patient's status. Osteopenia: Consider a repeat DEXA in 2-3 years to reassess this patient's status, or if there is a new clinical indication. Normal: Consider a repeat DEXA in 5 years or sooner, or if there is a new clinical indication. All treatment decisions require clinical judgment and consideration of individual patient factors, including patient preferences, comorbidities, previous drug use, risk factors not captured in the FRAX model (e.g., frailty, falls, vitamin D deficiency, increased bone turnover, interval significant decline in bone density ) and possible under- or over-estimation of fracture risk by FRAX. In addition, the NOF Guide recommends that FDA-approved medical therapies be considered in postmenopausal women and men age >= 50 years with a: * Hip or vertebral (clinical or morphometric) fracture * T-score of <=-2.5 at the spine or hip * Ten-year fracture probability by FRAX of >= 3% for hip fracture or >=20% for major osteoporotic fracture. Dictated by: Ann Borges M.D. on 07/25/2025 at 15:03 Approved by: Ann Borges M.D. on 07/25/2025 at 15:05
== END ==
LOC: RAD 09:29
PROVIDERS: PCP Family Medicine; Referring Provider Family Medicine; Visit Provider Family Medicine
DX: Z78.0 Asymptomatic menopausal state (principal)
CPT/HCPCS: 77080